=== PATIENT | male | born 1965 | race Caucasian/White ===

== ENCOUNTER → 2016-11-22 | Day surgery (SDC) | payer BC ==
[~2016-11-22] MED LIST: BUPIVACAINE/EPINEPHRINE 0.25% PF 30 ML VIAL ONE; KETOROLAC TROMETHAMINE 30 MG/ML (IVP) VIAL IV PUSH ONE; LACTATED RINGER'S 1000 ML INJ 1,000 ML ONE; MIDAZOLAM HCL 2 MG/2 ML VIAL ONE; ONDANSETRON HCL 4 MG/2 ML VIAL IV PUSH ONE; PROPOFOL 200 MG/20 ML AMP IV ONE; ceFAZolin 2 GM PREMIX 50 ML ONE
--- NOTE | 2016-11-22 10:26 | TN ---
cc: MINDI YAP M.D. DATE OF SURGERY: 11/22/2015 PREOPERATIVE DIAGNOSIS Recurrent right inguinal hernia. POSTOPERATIVE DIAGNOSIS 1. Recurrent right inguinal hernia. 2. Indirect inguinal hernia with appendix and hernia sac. PROCEDURE PERFORMED Repair recurrent right inguinal hernia with mesh. SURGEON Mindi Yap MD ANESTHESIA General LMA. COMPLICATIONS None. INDICATION FOR PROCEDURE Mr. Bocanegra is a pleasant 51-year-old gentleman who developed a recurrent right inguinal hernia. His history is significant for undergoing a laparoscopic bilateral inguinal hernia repair with mesh many years ago at another facility. He was seen and evaluated and found to have an obvious right inguinal hernia. He was offered elective repair. Risks and benefits of repair was discussed with him and he was agreeable. DETAILS OF PROCEDURE The patient was identified, brought to the operating room and placed supine on the operating table. After adequate general anesthesia was achieved with LMA, the anterior abdomen and groin was prepped and draped in standard surgical fashion. 0.25% Marcaine was injected into the skin and subcutaneous tissue in the right groin. A transverse incision was made. Dissection was carried down through subcutaneous tissue, through Trupti's fascia down to the level of the external oblique. External oblique was opened up along the course its fibers. The cord structures were immediately identified. They were carefully dissected and encircled with Dorinda drain. There was no evidence of a direct recurrence. Cord structures were then carefully dissected and indirect inguinal hernia sac was identified. It was carefully dissected off of the cord structures back to the level of the internal ring. Hernia sac was then opened and found to contain the appendix. The appendix was carefully dissected off of the hernia sac circumferentially until it was freed up and reduced back into the abdominal cavity. The hernia sac was then ligated at its base using a 2-0 Vicryl suture. Distal sac was then excised and discarded. Attention was now directed to mesh repair. A piece of polypropylene mesh was inserted with a slit cut for the cord structures. It was secured medially at Tonio's ligament and pubic tubercle and inferior along the shelving edge of inguinal ligament using a running 2-0 Prolene suture. The mesh was then secured again on Tonio's ligament and superiorly across the transversalis fascia and again using a 2-0 Prolene continuous running suture. The cord structures were allowed to pass freely through the mesh. The internal ring was appropriately tightened using a 2-0 Prolene suture. The wound was then copiously irrigated with normal saline solution. Repair was inspected and the direct and indirect spaces were well covered by mesh. Cord structures were passing freely through the mesh. 0.25% Marcaine was injected in the operative field. Cord structures were returned to their anatomic position. 2-0 Vicryl was used to close the external oblique, 3-0 Vicryl was used to close Trupti's fascia and a 4-0 was used to close the skin. The patient tolerated the procedure well, was awakened, brought to recovery in stable condition. Mindi MD SANA Yap/RAMON /9:55 AM /10:10 AM
== END | disposition home or self-care (01) ==
LOC: ESDC 07:17
PROVIDERS: ATTEND Surgery Trauma Surgery
DX: K40.91 Unilateral inguinal hernia, without obstruction or gangrene, recurrent (principal)
CPT/HCPCS: 00830; 49520; C1781; J0690; J1885; J2250; J2405; J3010; J7120